=== PATIENT | female | born 1935 | race Caucasian/White ===

== ENCOUNTER 2016-07-28 15:11 | Observation (INO) | payer MEDICARE, OTHER ==
[~2016-07-28] VITALS: Ht 167.6 cm; Wt 75.3 kg
[~2016-07-28 15:11] MED LIST: ASPIRIN CHILDRE81 M1 PO; BACTROBAN2% TP; CEFTIN500 MG PO; CENTRUM SILVER1 TAB PO; CEPHALEXIN MON500 MG PO; CEPHALEXIN500 MG PO; CHEWABLE ASPIRI81 MG PO; CHLORTHALIDONE25 MG PO; CILOSTAZOL100 MG PO; CLINDAMYCIN HC150 MG PO; COUMADIN 2.5MG2.5 MG PO; COUMADIN 5MG TAB5 MG PO; COUMADIN2 MG PO; DICLOFENAC TD; DOCUSATE SODIU250 M1 PO; FENTANYL TR25 MCG/HR TD; FERROUS SULFAT325 M2; FERROUS SULFAT325 M2 PO; FERROUS SULFATE65 MG PO; FLEXERIL10 MG PO; GABAPENTIN100 M2 PO; HUMULIN 70100 UNITS/ SC; HYDROXYZINE 25M25 MG PO; INSULIN RE100 UNITS/ SC; IRON65 MG PO; ISOSORBIDE DINI10 MG PO; Isosorbide Mono30 MG PO; Isosorbide Mono60 MG PO; K-DUR 20MEQ TA20 MEQ PO; KAYEXALATE1 PDR PO; LASIX 40MG. TAB40 MG PO; LASIX 80MG. TAB80 MG PO; LASIX20 MG PO; LEVALBUTER1.25 MG/0. IN; LORTAB 500 MG-71 TAB PO; MAALOX 30ML30 ML/UDC PO; MACROBID100 M3 PO; METOCLOPRAMIDE10 MG PO; MILK OF MA400 MG/51 PO; MORPHINE SULFAT30 M1 PO; MORPHINE SULFAT30 M3 PO; NITROGLYCERIN0.4 M1 SL; NOVAPLUS VANCO125 MG PO; NOVOLOG MIX 70/33 ML SC; NYSTATIN TP; OMEPRAZOLE20 MG PO; OMEPRAZOLE40 MG PO; OXYBUTYNIN5 MG PO; POLYETHYLE17 GM/DOSE PO; PREDNISONE 20MG20 MG PO; PRILOSEC20 M1 PO; QUINAPRIL20 MG PO; RESTORIL 30MG C30 MG PO; TEARS NATURALE15 ML OP; TESSALON PERLE100 MG PO; TRAZADONE HYDR100 MG PO; URBAN 360 ML360 ML PO; VITAMIN C250 M1 PO; VITAMIN D31000 I1 PO; WARFARIN SOD5 MG PO; ZINC SULFATE220 MG PO; ZITHROMAX Z-PA250 M1 PO; [UNRECOGNIZED DRUG - OTHER] TP
[2016-07-28 15:13] VITALS: BP 134/53
--- NOTE | 2016-07-28 16:12 | RADIOLOGY REPORT PS360 ---
CHEST-PORTABLE HISTORY: ANEMIA ORDERING PHYSICIAN: Nena Cunha MD PATIENT AGE: 81 years COMPARISON: 06/30/2016 FINDINGS: The cardiomediastinal silhouette and pulmonary vascularity are within normal limits. The lungs are clear without infiltrates, suspicious nodules, or pleural effusions. No acute bony abnormalities. There is evidence of old granulomatous disease IMPRESSION: No change with no acute finding
[2016-07-28 16:13] LABS: LYMPH # 0.7 K/mm3 (0.7-4.5); LYMPH % 17.4 % (10-50.0)
[2016-07-28 16:16] LABS: HEMOGLOBIN 8.7 g/dL (12.2-16.2)
--- NOTE | 2016-07-28 16:20 | Emergency Room Report ---
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 N Clinical Suspician of Infection? N Mental Status: 1 - Regular (Normal Baseline) Sepsis Risk:Low Sepsis Risk Have you (or family members/close friends) recently traveled outside the [place]? N If Yes, where/when: Have you had exposure to infectious disease within the past month? TB? Other? Specify: Patient with diminished PO intake the last few days, mouth feels dry; has chronic anemia and trending down hemoglobin noted at [place]; s/p AKA amputation [place] within the past few weeks, no complaints from that standpoint. She denies n/v/d; she is on Coumadin. ALLERGIES Coded Allergies: oxycodone (Severe, S-DIFF. BREATHING 07/28/16) Penicillins (Intermediate, I-RASH 07/28/16) Quinolones (Intermediate, I-RASH 07/28/16) Sulfa (Sulfonamide Antibiotics) (Intermediate, I-RASH 07/28/16) ciprofloxacin (Intermediate, I-RASH 07/28/16) sulfacetamide (Intermediate, I-RASH 07/28/16) Home Medications Active Scripts Sodium Polystyrene Sulfonate (Kayexalate) 15 GM PO ONCE #1 PDR Prov: 06/30/16 NITROFURANTOIN MONOHYD/M-CRYST (Macrobid 100 MG Capsule) 100 MG PO DAILY #7 CAP Prov: 06/30/16 Gabapentin 100 MG PO BID #60 Prov: 10/02/10 Reported Medications Isosorbide Dinitrate 30 MG PO BID Omeprazole (Omeprazole 20MG) 20 MG PO BID Metoclopramide Hcl (Metoclopramide) 10 MG PO QID Polyethylene Glycol 3350 17 GM PO DAILY DEXTRAN 70/HYPROMELLOSE (Tears Naturale Droptainer) 1-2 DROP OP BID Warfarin Sodium (Coumadin) 4 MG PO DAILY CILOSTAZOL (Cilostazol) 100 MG PO BID MORPHINE SULFATE SR/ER (Morphine Sulfate ER) 30 MG PO BID INSUL REG 30%ISOPHAN 70% HUMAN (Humulin 70-30 Vial) 8 UNITS SC BID Furosemide (Lasix) 40 MG PO BID Trazodone Hcl (Trazodone HCl) 200 MG PO QHS Quinapril Hcl (Quinapril HCl) 20 MG PO BID Aspirin 81 MG PO DAILY Nystatin-Triamcin Oint (Nystatin-Triamcinolone Ointm) 1 OIN TP BID MISCELLANEOUS (UNKNOWN MEDICATION) 1 TAB PO PRN PRN CONSTIPATION MULTIVIT,THER IRON,CA,FA & MIN (Sm Therapeutic M Tablet) 1 TAB PO DAILY Nitroglycerin 0.4 MG SL PRN PRN CHEST PAIN Furosemide (Lasix 40MG) 40 MG PO BID OMEPRAZOLE MAGNESIUM (Prilosec 20MG) 20 MG PO BID MUPIROCIN 2% (Bactroban Oint) 0 GM TP DAILY #22 History Medical History General CAD? No Angina: Yes [place]: Yes Hypertension? Yes Hyperlipidemia? No CHF? Yes DVT? Yes PE? Yes COPD? No Asthma? No Anemia? No GERD? No Gastric ulcers? No GI Bleed? No Hernia? Yes Thyroid Problems? No Hypothyroidism? No CVA? Yes Seizures? 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 Yes Renal Insuffiency? Yes End Stage Renal Disease? No UTI? Yes Stones? No BPH? No GB Disease: Yes Nephritic Syndrome? No Asplenia? No Hepatitis? No Sickle Cell Disease? No Arthritis? No Migraines? No Cataracts? Yes Glaucoma? No MRSA? No HIV? No TB? No Anxiety? Yes Depression? 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 Family History Family Hx Diabetes Yes CAD Yes Hypertension No Hyperlipidemia No Cancer No TB Yes Social History Smoking Hx Smoker: Never Smoker Tobacco: No Type N/A Packs/day N/A Alcohol Alcohol: No Review of Systems All Other Systems Reviewed and Negative Comment heme: chronic anemia Physical Exam Vital Signs Vital Signs Date Time Temp Pulse Resp B/P Pulse O2 O2 Flow FiO2 Ox Delivery Rate 07/28 1635 68 20 134/53 98 07/28 1513 98.3 79 18 134/53 98 General Appearance normal appearance, WD/WN, no apparent distress Eye Exam - bilateral eye normal exam, bilateral eye PERRL, bilateral eye EOMI Ear, Nose, Throat hearing grossly normal (OP dry) Neck normal inspection, non-tender, supple, full range of motion Respiratory Status Yes: trachea midline, chest symmetrical, non tender chest. No: respiratory distress, tender on palpation, use of accessory muscles, pain on inspiration, pain on expiration, productive cough, non productive cough. Lung Sounds bilateral: normal breath sounds, lungs clear. Cardiovascular normal exam, regular rate/rhythm, no peripheral edema, has B AKA Peripheral Pulses Pulses normal Yes (B AKA femoral pulses good) Gastrointestinal normal bowel sounds, non tender, firm, soft, no organomegaly, no pulsatile mass (ecchymosis) Extremities non-tender (ugo intact R no drainage) Neurologic alert, normal exam, no motor/sensory deficits, oriented x 3, B AKA moves BUE well and legs at hip level move well. Medical Decision Making LABS/Meds/Orders Pt receiving controlled substance in ED? No Results/Orders Laboratory Tests 07/28/16 1631: Urine Color STRAW, Urine Appearance CLEAR, Urine pH 5.5, Ur Specific [place] 1.010, Urine Protein NEGATIVE, Urine Ketones NEGATIVE, Urine Blood NEGATIVE, Urine Nitrate POSITIVE H, Urine Bilirubin NEGATIVE, Urine Urobilinogen 0.2, Ur Leukocyte Esterase 2+ H, Urine WBC OCC, Urine Bacteria 2+, Urine Glucose NEGATIVE 07/28/16 1555: MCH 32.3 H 07/28/16 1555: Sodium 127 L, Potassium 4.9, Chloride 93 L, Carbon Dioxide 27, BUN 126 *H, Creatinine 4.0 H, Estimated Creat Clear 13 L, Estimated GFR (MDRD) 11 *L, Glucose 188 H, Calcium 8.3 L, Total Bilirubin 0.2, AST 23, ALT 23, Alkaline Phosphatase 93, Total Protein 6.5, Albumin 2.5 L, Globulin 4.0 H, Albumin/ Globulin Ratio 0.6 L, PT Pending, INR Pending, WBC 4.1 L, RBC 2.67 L, Hgb 8.7 L, Hct 25.8 L, MCV 96.0, RDW 14.2, Plt Count 264, MPV 6.2 L, Gran % 77.3, Gran # 3.1, Lymphocytes % 17.4, Monocytes % 4.0, Eosinophils % 1.2, Basophils % 0.1, Lymphocytes # 0.7, Monocytes # 0.2, Eosinophils # 0.1, Basophils # 0.0, PUBS MCHC 33.6, Antibody Screen NEGATIVE, Miscellaneous Test POSITIVE Current Medication Orders Sig/Loretta Start time Last Medication Dose Route Stop Time Status Admin Sodium Chloride 10 ML PRN PRN 07/28 1515 AC IV 07/29 1515 Orders Procedure Date/time Status Decision to admit 07/28 1700 Active CULTURE, URINE 07/28 1631 Active URINARY CATHETER INSERT 07/28 1614 Active URINALYSIS/COMPLETE 07/28 1614 Complete TYPE FOR CROSSMATCH 07/28 1550 Complete 12 LEAD EKG-SILAS (INITIAL) 07/28 1516 Active ELECTROCARDIOGRAM REQUEST 07/28 1516 Active IV SALINE LOCK 07/28 1516 Active CBC WITH AUTO DIFF 07/28 1516 Complete CHEM 12 PROFILE 07/28 1516 Complete Consult MD Physician Consult Time Called 1654 Reason Pt. Condition Departure Departure Time of Disposition 1741 Disposition Still a Patient Clinical Impression Primary Impression: Anemia Qualifiers: Anemia type: unspecified type Qualified Code: D64.9 - Anemia, unspecified Condition STABLE Referrals Yimi Valenzuela (Family) ED Critical Care Critical Care No at 1742
[2016-07-28 16:43] LABS: URINE BILIRUBIN - DIPSTICK NEGATIVE (NEG); URINE BLOOD NEGATIVE (NEG)
[2016-07-28 17:00] LABS: ABO BLOOD TYPE O; RH BLOOD TYPE POSITIVE
[2016-07-28 18:41] VITALS: BP 90/54
[2016-07-28 18:43] VITALS: BP 90/54
[2016-07-28] MEDS ORDERED: CALCITRIOL 00.25 MCG PO (18:52)
[2016-07-28] MEDS ORDERED: CALCIUM 600600 M2 PO (18:53)
[2016-07-28] MEDS ORDERED: GABAPENTIN 100100 MG PO (18:56)
[2016-07-28] MEDS ORDERED: METOPROLOL 25 M25 MG PO (18:57)
[2016-07-28] MEDS ORDERED: COUMADIN 5MG TAB5 MG PO (19:03)
[2016-07-28] MEDS ORDERED: GOOD SENSE PAI500 M1 PO (19:05)
[2016-07-28] MEDS ORDERED: REGLAN 5MG TABLE5 MG PO (19:06)
[2016-07-28] MEDS ORDERED: OXYCODONE SR 4040 MG PO (19:07)
[2016-07-28 20:10] VITALS: BP 130/48
[2016-07-29] VITALS (21 sets, daily range): BP systolic 116–163; BP diastolic 47–74
[2016-07-29 00:10] LABS: ANTIHUMAN GLOB CROSSMATCH COMPAT
[2016-07-29 06:59] LABS: LYMPH # 2.2 K/mm3 (0.7-4.5); LYMPH % 67.8 % (10-50.0)
[2016-07-29 07:00] LABS: HEMOGLOBIN 9.9 g/dL (12.2-16.2)
[2016-07-29 07:16] LABS: NEUTROPHILS 75 % (42-76)
--- NOTE | 2016-07-29 07:20 | Discharge Summary Standard ---
Demographics: Admit date: 07/28/16 Chief complaint: Abnormal labs PRIMARY DIAGNOSIS: CHRONIC ANEMIA Allergies: Coded Allergies: oxycodone (Severe, S-DIFF. BREATHING 07/28/16) Penicillins (Intermediate, I-RASH 07/28/16) Quinolones (Intermediate, I-RASH 07/28/16) Sulfa (Sulfonamide Antibiotics) (Intermediate, I-RASH 07/28/16) ciprofloxacin (Intermediate, I-RASH 07/28/16) sulfacetamide (Intermediate, I-RASH 07/28/16) History of present illness: History of present illness: 81-year-old female with history of vascular disease and severe chronic kidney disease and was sent to the emergency department from the assisted [facility] where she resides due to some abnormal labs. Patient had a hemoglobin in the mid eights which was a slight decrease from baseline. She is status post [id number] amputation at the [facility]. Patient had a hemoglobin of 8.6 on arrival. She was mildly hyponatremic and urinalysis was abnormal. Patient was admitted for blood transfusion. She received 2 units of packed red blood cells overnight Past medical history: Family HX Family Hx Insignificant No Diabetes Yes CAD Yes Hypertension No Hyperlipidemia No Cancer No TB Yes Immunization HX Ped.Immunizations UTD Yes DT/Tetanus Unknown Flu [id number] Flu Season Pneumonia Received In Past TB Test in last year No General CAD? No Angina: Yes [place]: Yes Hypertension? Yes Hyperlipidemia? No CHF? Yes DVT? Yes PE? Yes COPD? No Asthma? No Anemia? No GERD? No Gastric ulcers? No GI Bleed? No Hernia? Yes Thyroid Problems? No Hypothyroidism? No CVA? Yes Seizures? 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 Yes Renal Insuffiency? Yes UTI? Yes Stones? No BPH? No GB Disease: Yes Nephritic Syndrome? No Asplenia? No Hepatitis? No Sickle Cell Disease? No Arthritis? No Migraines? No Cataracts? Yes Glaucoma? No MRSA? No HIV? No TB? No Anxiety? Yes Depression? 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 Current home meds: Active Scripts NITROFURANTOIN MONOHYD/M-CRYST (Macrobid 100 MG Capsule) 100 MG PO DAILY #7 CAP Prov: 06/30/16 Reported Medications Isosorbide Dinitrate 30 MG PO BID Metoclopramide Hcl (Metoclopramide) 10 MG PO QID Furosemide (Lasix) 20 MG PO DAILY Polyethylene Glycol 3350 17 GM PO DAILY DEXTRAN 70/HYPROMELLOSE (Tears Naturale Droptainer) 1-2 DROP OP BID Omeprazole (Omeprazole 20MG) 20 MG PO BIDPRN Calcitriol (Calcitriol 0.25MCG Capsule) 0.25 MCG PO DAILY CALCIUM CARBONATE (Calcium Carbonate) 600 MG PO DAILY GABAPENTIN (Gabapentin 100MG Capsule) 100 MG PO BID Metoprolol Tartrate (Metoprolol 25MG) 12.5 MG PO BID WARFARIN SOD (Coumadin) 5 MG PO DAILY MISCELLANEOUS (UNKNOWN MEDICATION) 1 MISAEL TP BID Acetaminophen 500 MG PO Q6 PRN Metoclopramide Hcl (Reglan) 10 MG PO QIDPRN Oxycodone Hcl Sr (Oxycodone Sr 40MG) 10 MG PO Q4H Warfarin Sodium (Coumadin) 4 MG PO DAILY CILOSTAZOL (Cilostazol) 100 MG PO BID MORPHINE SULFATE SR/ER (Morphine Sulfate ER) 30 MG PO BID INSUL REG 30%ISOPHAN 70% HUMAN (Humulin 70-30 Vial) 8 UNITS SC BID Trazodone Hcl (Trazodone HCl) 200 MG PO QHS Quinapril Hcl (Quinapril HCl) 20 MG PO BID Aspirin 81 MG PO DAILY Nystatin-Triamcin Oint (Nystatin-Triamcinolone Ointm) 1 OIN TP BID MISCELLANEOUS (UNKNOWN MEDICATION) 1 TAB PO PRN PRN CONSTIPATION MULTIVIT,THER IRON,CA,FA & MIN (Sm Therapeutic M Tablet) 1 TAB PO DAILY Nitroglycerin 0.4 MG SL PRN PRN CHEST PAIN MUPIROCIN 2% (Bactroban Oint) 0 GM TP DAILY #22 Social Hx: Smoking HX Tobacco No Type N/A Packs/day N/A Are you/the child exposed to second-hand smoke: No Alcohol Alcohol: No Hx of Drug Use Drug Use? No Patien't marital status is Patient's support system is good Review of systems: Constitutional No: chills, fever. Respiratory no symptoms reported. Cardiovascular no symptoms reported Gastrointestinal/Abdominal no symptoms reported Genitourinary no symptoms reported. Musculoskeletal no symptoms reported. Neurological Yes: no symptoms reported. Exam: Lab data for last 24 hours: Laboratory Tests 07/29/16 0650: Sodium 131 L, Potassium 4.4, Chloride 98, Carbon Dioxide 25, BUN 117 *H, Creatinine 3.2 H, Estimated Creat Clear 17 L, Estimated GFR (MDRD) 14 *L, Glucose 98, Calcium 8.3 L, WBC 3.2 L, RBC 3.20 L, Hgb 9.9 L, Hct 29.7 L, MCV 92.9, RDW 15.5, Plt Count 244, MPV 6.1 L, Gran % 18.9 L, Gran # 0.6 *L, Lymphocytes % 67.8 H, Monocytes % 12.6 H, Eosinophils % 0.6, Basophils % 0.1, Lymphocytes # 2.2, Monocytes # 0.4, Eosinophils # 0.0, Basophils # 0.0, PUBS MCHC 33.8, MCH 31.4 H 07/29/16 0648: POC Glucose 104 07/29/16 0320: [facility] [place] Test Units BLOOD UNIT RELEASE 07/29/16 0022: [facility] Test Units BLOOD UNIT RELEASE 07/28/16 1631: Urine Color STRAW, Urine Appearance CLEAR, Urine pH 5.5, Ur Specific [place] 1.010, Urine Protein NEGATIVE, Urine Ketones NEGATIVE, Urine Blood NEGATIVE, Urine Nitrate POSITIVE H, Urine Bilirubin NEGATIVE, Urine Urobilinogen 0.2, Ur Leukocyte Esterase 2+ H, Urine WBC OCC, Urine Bacteria 2+, Urine Glucose NEGATIVE 07/28/16 1555: MCH 32.3 H 07/28/16 1555: Sodium 127 L, Potassium 4.9, Chloride 93 L, Carbon Dioxide 27, BUN 126 *H, Creatinine 4.0 H, Estimated Creat Clear 13 L, Estimated GFR (MDRD) 11 *L, Glucose 188 H, Calcium 8.3 L, Total Bilirubin 0.2, AST 23, ALT 23, Alkaline Phosphatase 93, Total Protein 6.5, Albumin 2.5 L, Globulin 4.0 H, Albumin/ Globulin Ratio 0.6 L, PT 29.6 H, INR 2.77 H, WBC 4.1 L, RBC 2.67 L, Hgb 8.7 L, Hct 25.8 L, MCV 96.0, RDW 14.2, Plt Count 264, MPV 6.2 L, Gran % 77.3, Gran # 3.1, Lymphocytes % 17.4, Monocytes % 4.0, Eosinophils % 1.2, Basophils % 0.1, Lymphocytes # 0.7, Monocytes # 0.2, Eosinophils # 0.1, Basophils # 0.0, PUBS MCHC 33.6, Antibody Screen NEGATIVE, Miscellaneous Test POSITIVE Microbiology 07/28 1631 URINE,FO: Urine Culture - RECD Admission vital signs: 1ST Vital Signs Result Date Time Pulse Ox 98 07/28 1513 B/P 134/53 07/28 1513 Temp 98.3 07/28 1513 Pulse 79 07/28 1513 Resp 18 07/28 1513 O2 Delivery ROOM AIR 07/28 1841 Additional information: Patient awakens easily this morning. With prompting she does remember me. She is oriented to person and place this morning. Head is without lesions. Oropharynx is moist. Neck is without carotid bruits. Heart has a regular rate and rhythm. Lungs are clear to auscultation. Abdomen is soft and nontender. Skin exam reveals multiple decubiti on the buttocks (see nursing assessment). Patient has bilateral [id number]-[id number] amputations. Recent amputation site on the RIGHT leg is healing well and ugo are intact. Patient has a Jeffries catheter in place that is draining clear urine Hospital Course Hospital Course: Patient was admitted and transfused 2 units of packed red cells which brought her hemoglobin up to 9.9. Creatinine decreased from 4 down to 3.2 which is a little bit closer to her baseline. BUN remained elevated. Once her H and H had risen she was discharged back to [facility] for further assisted. Medications Medications: Discharge meds are as noted. Follow up Follow up in office in: 1 DAY with: Yimi Hill at 0719
--- NOTE | 2016-07-29 07:20 | Discharge Summary Standard ---
Demographics: Admit date: 07/28/16 Chief complaint: Abnormal labs PRIMARY DIAGNOSIS: CHRONIC ANEMIA Allergies: Coded Allergies: oxycodone (Severe, S-DIFF. BREATHING 07/28/16) Penicillins (Intermediate, I-RASH 07/28/16) Quinolones (Intermediate, I-RASH 07/28/16) Sulfa (Sulfonamide Antibiotics) (Intermediate, I-RASH 07/28/16) ciprofloxacin (Intermediate, I-RASH 07/28/16) sulfacetamide (Intermediate, I-RASH 07/28/16) History of present illness: History of present illness: 81-year-old female with history of vascular disease and severe chronic kidney disease and was sent to the emergency department from the half-way [facility] where she resides due to some abnormal labs. Patient had a hemoglobin in the mid eights which was a slight decrease from baseline. She is status post [id number] amputation at the [facility]. Patient had a hemoglobin of 8.6 on arrival. She was mildly hyponatremic and urinalysis was abnormal. Patient was admitted for blood transfusion. She received 2 units of packed red blood cells overnight Past medical history: Family HX Family Hx Insignificant No Diabetes Yes CAD Yes Hypertension No Hyperlipidemia No Cancer No TB Yes Immunization HX Ped.Immunizations UTD Yes DT/Tetanus Unknown Flu [id number] Flu Season Pneumonia Received In Past TB Test in last year No General CAD? No Angina: Yes [place]: Yes Hypertension? Yes Hyperlipidemia? No CHF? Yes DVT? Yes PE? Yes COPD? No Asthma? No Anemia? No GERD? No Gastric ulcers? No GI Bleed? No Hernia? Yes Thyroid Problems? No Hypothyroidism? No CVA? Yes Seizures? 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 Yes Renal Insuffiency? Yes UTI? Yes Stones? No BPH? No GB Disease: Yes Nephritic Syndrome? No Asplenia? No Hepatitis? No Sickle Cell Disease? No Arthritis? No Migraines? No Cataracts? Yes Glaucoma? No MRSA? No HIV? No TB? No Anxiety? Yes Depression? 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 Current home meds: Active Scripts NITROFURANTOIN MONOHYD/M-CRYST (Macrobid 100 MG Capsule) 100 MG PO DAILY #7 CAP Prov: 06/30/16 Reported Medications Isosorbide Dinitrate 30 MG PO BID Metoclopramide Hcl (Metoclopramide) 10 MG PO QID Furosemide (Lasix) 20 MG PO DAILY Polyethylene Glycol 3350 17 GM PO DAILY DEXTRAN 70/HYPROMELLOSE (Tears Naturale Droptainer) 1-2 DROP OP BID Omeprazole (Omeprazole 20MG) 20 MG PO BIDPRN Calcitriol (Calcitriol 0.25MCG Capsule) 0.25 MCG PO DAILY CALCIUM CARBONATE (Calcium Carbonate) 600 MG PO DAILY GABAPENTIN (Gabapentin 100MG Capsule) 100 MG PO BID Metoprolol Tartrate (Metoprolol 25MG) 12.5 MG PO BID WARFARIN SOD (Coumadin) 5 MG PO DAILY MISCELLANEOUS (UNKNOWN MEDICATION) 1 MISAEL TP BID Acetaminophen 500 MG PO Q6 PRN Metoclopramide Hcl (Reglan) 10 MG PO QIDPRN Oxycodone Hcl Sr (Oxycodone Sr 40MG) 10 MG PO Q4H Warfarin Sodium (Coumadin) 4 MG PO DAILY CILOSTAZOL (Cilostazol) 100 MG PO BID MORPHINE SULFATE SR/ER (Morphine Sulfate ER) 30 MG PO BID INSUL REG 30%ISOPHAN 70% HUMAN (Humulin 70-30 Vial) 8 UNITS SC BID Trazodone Hcl (Trazodone HCl) 200 MG PO QHS Quinapril Hcl (Quinapril HCl) 20 MG PO BID Aspirin 81 MG PO DAILY Nystatin-Triamcin Oint (Nystatin-Triamcinolone Ointm) 1 OIN TP BID MISCELLANEOUS (UNKNOWN MEDICATION) 1 TAB PO PRN PRN CONSTIPATION MULTIVIT,THER IRON,CA,FA & MIN (Sm Therapeutic M Tablet) 1 TAB PO DAILY Nitroglycerin 0.4 MG SL PRN PRN CHEST PAIN MUPIROCIN 2% (Bactroban Oint) 0 GM TP DAILY #22 Social Hx: Smoking HX Tobacco No Type N/A Packs/day N/A Are you/the child exposed to second-hand smoke: No Alcohol Alcohol: No Hx of Drug Use Drug Use? No Patien't marital status is Patient's support system is good Review of systems: Constitutional No: chills, fever. Respiratory no symptoms reported. Cardiovascular no symptoms reported Gastrointestinal/Abdominal no symptoms reported Genitourinary no symptoms reported. Musculoskeletal no symptoms reported. Neurological Yes: no symptoms reported. Exam: Lab data for last 24 hours: Laboratory Tests 07/29/16 0650: Sodium 131 L, Potassium 4.4, Chloride 98, Carbon Dioxide 25, BUN 117 *H, Creatinine 3.2 H, Estimated Creat Clear 17 L, Estimated GFR (MDRD) 14 *L, Glucose 98, Calcium 8.3 L, WBC 3.2 L, RBC 3.20 L, Hgb 9.9 L, Hct 29.7 L, MCV 92.9, RDW 15.5, Plt Count 244, MPV 6.1 L, Gran % 18.9 L, Gran # 0.6 *L, Lymphocytes % 67.8 H, Monocytes % 12.6 H, Eosinophils % 0.6, Basophils % 0.1, Lymphocytes # 2.2, Monocytes # 0.4, Eosinophils # 0.0, Basophils # 0.0, PUBS MCHC 33.8, MCH 31.4 H 07/29/16 0648: POC Glucose 104 07/29/16 0320: [facility] Test Units BLOOD UNIT RELEASE 07/29/16 0022: [facility] Test Units BLOOD UNIT RELEASE 07/28/16 1631: Urine Color STRAW, Urine Appearance CLEAR, Urine pH 5.5, Ur Specific [place] 1.010, Urine Protein NEGATIVE, Urine Ketones NEGATIVE, Urine Blood NEGATIVE, Urine Nitrate POSITIVE H, Urine Bilirubin NEGATIVE, Urine Urobilinogen 0.2, Ur Leukocyte Esterase 2+ H, Urine WBC OCC, Urine Bacteria 2+, Urine Glucose NEGATIVE 07/28/16 1555: MCH 32.3 H 07/28/16 1555: Sodium 127 L, Potassium 4.9, Chloride 93 L, Carbon Dioxide 27, BUN 126 *H, Creatinine 4.0 H, Estimated Creat Clear 13 L, Estimated GFR (MDRD) 11 *L, Glucose 188 H, Calcium 8.3 L, Total Bilirubin 0.2, AST 23, ALT 23, Alkaline Phosphatase 93, Total Protein 6.5, Albumin 2.5 L, Globulin 4.0 H, Albumin/ Globulin Ratio 0.6 L, PT 29.6 H, INR 2.77 H, WBC 4.1 L, RBC 2.67 L, Hgb 8.7 L, Hct 25.8 L, MCV 96.0, RDW 14.2, Plt Count 264, MPV 6.2 L, Gran % 77.3, Gran # 3.1, Lymphocytes % 17.4, Monocytes % 4.0, Eosinophils % 1.2, Basophils % 0.1, Lymphocytes # 0.7, Monocytes # 0.2, Eosinophils # 0.1, Basophils # 0.0, PUBS MCHC 33.6, Antibody Screen NEGATIVE, Miscellaneous Test POSITIVE Microbiology 07/28 1631 URINE,FO: Urine Culture - RECD Admission vital signs: 1ST Vital Signs Result Date Time Pulse Ox 98 07/28 1513 B/P 134/53 07/28 1513 Temp 98.3 07/28 1513 Pulse 79 07/28 1513 Resp 18 07/28 1513 O2 Delivery ROOM AIR 07/28 1841 Additional information: Patient awakens easily this morning. With prompting she does remember me. She is oriented to person and place this morning. Head is without lesions. Oropharynx is moist. Neck is without carotid bruits. Heart has a regular rate and rhythm. Lungs are clear to auscultation. Abdomen is soft and nontender. Skin exam reveals multiple decubiti on the buttocks (see nursing assessment). Patient has bilateral [id number]-[id number] amputations. Recent amputation site on the RIGHT leg is healing well and ugo are intact. Patient has a Jeffries catheter in place that is draining clear urine Hospital Course Hospital Course: Patient was admitted and transfused 2 units of packed red cells which brought her hemoglobin up to 9.9. Creatinine decreased from 4 down to 3.2 which is a little bit closer to her baseline. BUN remained elevated. Once her H and H had risen she was discharged back to [facility] for further half-way. Medications Medications: Discharge meds are as noted. Follow up Follow up in office in: 1 DAY with: Yimi Hill at 0719
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
--- OUTSIDE RECORDS SUMMARY | 2016-08-07 21:38 | External Medical Summary Rpt ---
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 K21.9 Gastro-esop 07-24-2016 hageal reflux disease without esophagitis L89.893 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 ulcer of other site, stage 3 M79.604 Pain in 07-24-2016 right leg N18.6 End stage 07-24-2016 renal disease R22.32 Localized 07-24-2016 swelling, mass and lump, left upper limb R41.0 Disorientat 07-24-2016 ion, unspecified T87.89 Other 07-24-2016 complicatio ns of amputation stump 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 Z79.82 detention 07-24-2016 (current) use of aspirin Z79.899 Other long 07-24-2016 term (current) drug therapy 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 Z95.5 Presence of 07-24-2016 coronary angioplasty implant and graft Z99.3 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 Z89.619 Acquired 07-16-2016 absence of unspecified leg above knee [id number] History of [place] - lower [facility] 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 285.9 286.9 Blood [place] coagulation [facility] disorder [facility] 401.1 Benign [place] essential [facility] [phone] Anemia due [place] to blood [facility] loss [facility] [phone] Atheroscler [place] osis of [facility] the extremities 585.4 Chronic [place] kidney [facility] disease [facility] stage 4 593.9 611.72 D64.9 ANEMIA, [...] SI 73 -2 NO 90 5- Lo ND 35 20 ng [place] 01 13 er [...] 00 07 0 No TA 40 -2 LA 99 4- Lo N 15 20 ng K- 80 13 er 1 1 10 Ac ti MG ve /M L AM PU L FS 07 2 No -2 BL 4- Lo OO 20 ng D 13 er VALENC[place] GA Ac R ti ve NO 00 07 2 No VO 16 -2 LO 93 4- Lo G 69 20 ng LA 61 13 er X 9 70 Ac [...] RO 40 -2 SE 96 4- Lo LA 10 20 ng DE 20 13 er [...] complet BldC 013 mg/dl ed Glucomt 16:55 r-[facility] Glucose BldC Glucomtr-nc (11-03-2012 12:08) Glucose 25-2 128 70-110 complet BldC 013 mg/dl ed Glucomt 12:08 r-[facility] BASIC METABOLIC PANEL (11-03-2012 06:50) Glucose 11-03-2 [...] mg/dl ed Glucomt 06:48 r-mCnc Glucose BldC Glucomtr-[facility] (11-02-2012 21:20) Glucose 11-02-2 151 70-110 complet [...] DOS Code Location Performer Comment WHOLE 99.03 [facility] Christophe POLANCO TRANSFUS NEC Encounters Encounter Start End Date Code Location Performer Type Date Inpatient IMP [place] Saeed MD ([place]) 3 10:04 3 11:20 [facility]
--- OUTSIDE RECORDS SUMMARY | 2016-08-07 21:39 | External Medical Summary Rpt ---
Demographics Preferred Language Tamazight Marital Status Unknown Orthodox Affiliation Unknown Race Unknown Ethnic Group Unknown Author Author , Organization [employer] Address Unknown Phone Unavailable Purpose Continuity of Care Document - through 2016 Immunization No patient found.
--- OUTSIDE RECORDS SUMMARY | 2016-08-07 21:39 | External Medical Summary Rpt ---
Demographics Preferred Language Lao Marital Status Unknown Uatsdin Affiliation Unknown Race Unknown Ethnic Group Unknown Author Author , Organization [employer] Address Unknown Phone Unavailable Purpose Continuity of Care Document - through 2016 Immunization No patient found.
--- OUTSIDE RECORDS SUMMARY | 2016-08-07 21:39 | External Medical Summary Rpt ---
Author Author GANGA Terry, [employer] Organization [employer] Address Unknown Phone Unavailable
--- OUTSIDE RECORDS SUMMARY | 2016-08-07 21:40 | External Medical Summary Rpt ---
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 K21.9 Gastro-esop 07-24-2016 hageal reflux disease without esophagitis L89.893 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 ulcer of other site, stage 3 M79.604 Pain in 07-24-2016 right leg N18.6 End stage 07-24-2016 renal disease R22.32 Localized 07-24-2016 swelling, mass and lump, left upper limb R41.0 Disorientat 07-24-2016 ion, unspecified T87.89 Other 07-24-2016 complicatio ns of amputation stump Z79.01 longterm 07-24-2016 (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 nts 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.82 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 Z79.899 Other long 07-24-2016 term (current) drug therapy 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 Z95.5 Presence of 07-24-2016 coronary angioplasty implant and graft Z99.3 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 Z89.619 Acquired 07-16-2016 absence of unspecified leg above knee [id number] History of [place] - lower [facility] limb [facility] amputation 285.9 286.9 Blood [place] coagulation [facility] disorder [facility] 401.1 Benign [place] essential [facility] [phone] Anemia due [place] to blood [facility] loss [facility] [phone] Atheroscler [place] osis of [facility] the extremities 585.4 Chronic [place] kidney [facility] disease [facility] stage 4 593.9 611.72 D64.9 ANEMIA, [...] SI 73 -2 NO 90 5- Lo OR 35 20 ng [place] 01 13 er [...] 00 07 0 No TA 40 -2 IA 99 4- Lo N 15 20 ng K- 80 13 er 1 1 10 Ac ti MG ve /M L AM PU L FS 07 2 No -2 BL 4- Lo OO 20 ng D 13 er VALENCIA GA Ac R ti ve NO 00 07 2 No VO 16 -2 LO 93 4- Lo G 69 20 ng IA 61 13 er X 9 70 Ac [...] RO 40 -2 SE 96 4- Lo IA 10 20 ng DE 20 13 er [...] complet BldC 013 mg/dl ed Glucomt 16:55 r-[facility] Glucose BldC Glucomtr-nc (11-03-2012 12:08) Glucose 25-2 128 70-110 complet BldC 013 mg/dl ed Glucomt 12:08 r-[facility] BASIC METABOLIC PANEL (11-03-2012 06:50) Glucose 11-03-2 [...] mg/dl ed Glucomt 06:48 r-mCnc Glucose BldC Glucomtr-[facility] (11-02-2012 21:20) Glucose 11-02-2 151 70-110 complet [...] DOS Code Location Performer Comment WHOLE 99.03 [facility] Christophe POLANCO TRANSFUS NEC Encounters Encounter Start End Date Code Location Performer Type Date Inpatient IMP Her[place]th Saeed MD ([place]) 3 10:04 3 11:20 [facility]
--- OUTSIDE RECORDS SUMMARY | 2016-08-07 21:40 | External Medical Summary Rpt ---
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 K21.9 Gastro-esop 07-24-2016 hageal reflux disease without esophagitis L89.893 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 ulcer of other site, stage 3 M79.604 Pain in 07-24-2016 right leg N18.6 End stage 07-24-2016 renal disease R22.32 Localized 07-24-2016 swelling, mass and lump, left upper limb R41.0 Disorientat 07-24-2016 ion, unspecified T87.89 Other 07-24-2016 complicatio ns of amputation stump Z79.01 half-way 07-24-2016 (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 nts Z79.82 rn long term care 07-24-2016 (current) use of aspirin Z79.899 Other long 07-24-2016 term (current) drug therapy 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 Z95.5 Presence of 07-24-2016 coronary angioplasty implant and graft Z99.3 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 Z89.619 Acquired 07-16-2016 absence of unspecified leg above knee [id number] History of [place] - lower [facility] limb [facility] amputation 285.9 286.9 Blood [place] coagulation [facility] disorder [facility] 401.1 Benign [place] essential [phone] Anemia due [place] to blood [facility] loss [facility] 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 585.4 Chronic [place] kidney [facility] disease [facility] stage 4 593.9 611.72 D64.9 ANEMIA, [...] SI 73 -2 NO 90 5- Lo [place] 35 20 ng [place] 01 13 er [...] 00 07 0 No TA 40 -2 [place] 99 4- Lo N 15 20 ng K- 80 13 er 1 1 10 Ac ti MG ve /M L AM PU L FS 07 2 No -2 BL 4- Lo OO 20 ng D 13 er [place] Ac R ti ve NO 00 07 2 No VO 16 -2 LO 93 4- Lo G 69 20 ng KS 61 13 er X 9 70 Ac [...] RO 40 -2 SE 96 4- Lo KS 10 20 ng DE 20 13 er [...] complet BldC 013 mg/dl ed Glucomt 16:55 r-[facility] Glucose BldC Glucomtr-nc (11-03-2012 12:08) Glucose 25-2 128 70-110 complet BldC 013 mg/dl ed Glucomt 12:08 r-[facility] BASIC METABOLIC PANEL (11-03-2012 06:50) Glucose [...] mg/dl ed Glucomt 06:48 r-[facility] Glucose BldC Glucomtr-[facility] (11-02-2012 21:20) Glucose 11-02-2 151 70-110 [...] DOS Code Location Performer Comment WHOLE 99.03 [facility] Christophe POLANCO TRANSFUS NEC Encounters Encounter Start End Date Code Location Performer Type Date Inpatient IMP [place] Saeed MD ([place]) 3 10:04 3 11:20 [facility]
--- OUTSIDE RECORDS SUMMARY | 2016-08-07 21:41 | External Medical Summary Rpt ---
Demographics Preferred Language Thai Marital Status Unknown [employer] Affiliation Unknown Race Unknown Ethnic Group Unknown Author Author , Organization [employer] Address Unknown Phone Unavailable Purpose Continuity of Care Document - through 2016 Immunization No patient found.
--- OUTSIDE RECORDS SUMMARY | 2016-08-07 21:41 | External Medical Summary Rpt ---
Demographics Preferred Language Bengali Marital Status Unknown Sabianism Affiliation Unknown Race Unknown Ethnic Group Unknown Author Author , Organization [employer] Address Unknown Phone Unavailable Purpose Continuity of Care Document - through 2016 Immunization No patient found.
--- OUTSIDE RECORDS SUMMARY | 2016-08-07 23:28 | External Medical Summary Rpt ---
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, stage 3 M79.604 Pain in 07-24-2016 right leg N18.6 End stage 07-24-2016 renal disease R22.32 Localized 07-24-2016 swelling, mass and lump, left upper limb R41.0 Disorientat 07-24-2016 ion, unspecified T87.89 Other 07-24-2016 complicatio ns of amputation stump 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 (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 nts Z79.82 FDC 07-24-2016 (current) use of aspirin Z79.899 Other long 07-24-2016 term (current) drug therapy 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 [facility] loss [facility] [id number] Atheroscler [place] osis of [facility] the extremities 585.4 Chronic [place] kidney [facility] disease [facility] stage 4 593.9 611.72 D64.9 ANEMIA, UNSPECIFIED [...] SI 73 -2 NO 90 5- Lo MA 35 20 ng [place] 01 13 er [...] 00 07 0 No TA 40 -2 RI 99 4- Lo N 15 20 ng K- 80 13 er 1 1 10 Ac ti MG ve /M L AM PU L FS 07 2 No -2 BL 4- Lo OO 20 ng D 13 er [place] Ac R ti ve NO 00 07 2 No VO 16 -2 LO 93 4- Lo G 69 20 ng RI 61 13 er X 9 70 Ac [...] RO 40 -2 SE 96 4- Lo RI 10 20 ng DE 20 13 er [...] 013 4 ed T 05:10 VOLUME Granulo --2 73.5 % 37.0-80 complet cytes 013 .0 ed Fr Bld 05:10 Auto LYMPH % -26-2 18.7 % 10-50.0 complet 013 ed 05:10 Monocyt --2 6.0 % 1.7-9.3 complet es Fr 013 [...] r-nc Glucose BldC Glucomtr-mCnc (11-03-2012 16:55) Glucose 11-03-2 142 70-110 complet BldC 013 mg/dl ed Glucomt 16:55 r-nc Glucose BldC Glucomtr-mCnc (11-03-2012 12:08) Glucose 11-03-2 128 70-110 complet BldC 013 mg/dl ed Glucomt 12:08 r-[facility] BASIC METABOLIC PANEL (11-03-2012 06:50) Glucose 11-03-2 [...] 013 mmoL/L ed SerPl-s 06:50 Cnc CO2 2 18 21.0-32 complet SerPl-s 013 mmoL/L .0 [...] mg/dl ed Glucomt 06:48 r-mCnc Glucose BldC Glucomtr-nc (11-02-2012 21:20) Glucose 11-02-2 151 70-110 complet [...] complet WBC 013 wbc/hpf ed 10:10 URINE 11-02-2 5-10 0-5 complet SQUAMOU 013 #/hpf ed S CELLS 10:10 URINE 11-02-2 1+ O complet BACTERI 013 ed A 10:10 URINE 24-2 2+ NONE complet YEAST 013 ed 10:10 COMPREHENSIVE METABOLIC PANEL (11-02-2012 09:35) Glucose 11-02-2 238 74-106 complet 013 mg/dL ed Bld-mCn [...] 013 mmoL/L .0 ed Cnc 09:35 Calcium 11-02-2 7.0 8.5-10. complet 013 mg/dL 1 ed SerPl-m 09:35 Cnc Prot 24-2 4.5 6.4-8.2 complet SerPl-m 013 gm/dL ed Cnc 09:35 Albumin 24-2 2.4 3.4-5.0 complet 013 gm/dL ed SerPl-m 09:35 Cnc Globuli 11-02-2 2.1 1.3-3.2 complet n 013 gm/dL ed Ser-mCn 09:35 c Albumin 11-02-2 1.1 UNK 1.1-1.8 complet /Glob 013 ed SerPl-m 09:35 Rto Bilirub 11-02-2 0.2 0.2-1.0 complet 013 mg/dL ed SerPl-m 09:35 Cnc AST 11-02-2 11 U/L 15-37 complet SerPl-c 013 ed Cnc 09:35 ALT 2 32 U/L 30-65 complet SerPl-c 013 ed Cnc 09:35 ALP 2 7 U/L 50-136 complet SerPl-c 013 ed Cnc 09:35 D Dimer PPP (11-02-2012 09:35) D Dimer 11-02-2 Less 0-400 complet PPP 013 than ed 09:35 100 ng/mL CBC with AUTO DIFF (11-02-2012 09:35) WBC # 11-02-2 7.4 4.8-10. complet Bld 013 K/MM3 8 ed Auto 09:35 RBC # 11-02-2 1.97 4.2-5.4 complet Bld 013 M/mm3 ed Auto 09:35 Hgb 11-02-2 6.2 12.2-16 Low complet Bld-mCn 013 g/dL .2 alert ed c 09:35 Hct Fr 11-02-2 20.9 % 37.0-47 Low complet Bld 013 .0 alert ed 09:35 MCV RBC 11-02-2 105.6 82.2-97 complet 013 fl .8 ed 09:35 MCH RBC 11-02-2 31.3 pg 27-31.2 complet Qn 013 ed Auto 09:35 MEAN 11-02-2 29.6 31.8-35 complet CORPUSC 013 g/dl .4 ed ULAR 09:35 HGB CONC RDW RBC 11-02-2 13.5 % 11.5-17 complet Auto 013 .5 [...] DOS Code Location Performer Comment WHOLE 99.03 [facility] Christophe POLANCO TRANSFUS NEC Encounters Encounter Start End Date Code Location Performer Type Date Inpatient IMP [place] Sae[place] ([place]) 3 10:04 3 11:20 [facility]
--- OUTSIDE RECORDS SUMMARY | 2016-08-07 23:28 | External Medical Summary Rpt ---
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, stage 3 M79.604 Pain in 07-24-2016 right leg N18.6 End stage 07-24-2016 renal disease R22.32 Localized 07-24-2016 swelling, mass and lump, left upper limb R41.0 Disorientat 07-24-2016 ion, unspecified T87.89 Other 07-24-2016 complicatio ns of amputation stump 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 Z79.82 long-term 07-24-2016 (current) use of aspirin Z79.899 Other long 07-24-2016 term (current) drug therapy 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 BASIC METABOLIC PANEL (11-03-2012 06:50) Glucose 11-03-2 [...] DOS Code Location Performer Comment WHOLE 99.03 [facility] Christophe POLANCO TRANSFUS NEC Encounters Encounter Start End Date Code Location Performer Type Date Inpatient IMP [place] Saeed [place] ([place]) 3 10:04 3 11:20 [facility]
--- OUTSIDE RECORDS SUMMARY | 2016-08-07 23:29 | External Medical Summary Rpt ---
Demographics Preferred Language Welsh Marital Status Unknown [employer] Affiliation Unknown Race Unknown Ethnic Group Unknown Author Author , Organization [employer] Address Unknown Phone Unavailable Purpose Continuity of Care Document - through 2016 Immunization No patient found.
--- OUTSIDE RECORDS SUMMARY | 2016-08-07 23:29 | External Medical Summary Rpt ---
Demographics Preferred Language Icelandic Marital Status Unknown Roman Catholic Affiliation Unknown Race Unknown Ethnic Group Unknown Author Author , Organization [employer] Address Unknown Phone Unavailable Purpose Continuity of Care Document - through 2016 Immunization No patient found.
[2016-08-18] MEDS ORDERED: MACROBID100 M3 PO (15:05)
== END 2016-07-29 10:53 ==
LOC: ER 15:11 → 2ND 17:04 → ER 17:04 → 2ND 17:04
PROVIDERS: Emergency Medicine
DX: D64.9 Anemia, unspecified (principal); C85.90 Non-Hodgkin lymphoma, unspecified, unspecified site; Z86.711 Personal history of pulmonary embolism; Z79.01 Long term (current) use of anticoagulants; Z86.718 Personal history of other venous thrombosis and embolism; E11.9 Type 2 diabetes mellitus without complications; Z79.4 Long term (current) use of insulin; E87.1 Hypo-osmolality and hyponatremia; I12.0 Hypertensive chronic kidney disease with stage 5 chronic kidney disease or end stage renal disease; E11.22 Type 2 diabetes mellitus with diabetic chronic kidney disease; N18.6 End stage renal disease; Z99.2 Dependence on renal dialysis
CPT/HCPCS: G0378; P9016

== ENCOUNTER → 2017-01-04 | Outpatient (CLI) | payer MEDICARE, OTHER ==
[~2017-01-04] MED LIST changes: +CALCITRIOL 00.25 MCG PO; +CALCIUM 600600 M2 PO; +GABAPENTIN 100100 MG PO; +GOOD SENSE PAI500 M1 PO; +METOPROLOL 25 M25 MG PO; +OXYCODONE SR 4040 MG PO; +REGLAN 5MG TABLE5 MG PO
[2017-01-04 14:37] LABS: LYMPH # 1.2 K/mm3 (0.7-4.5); LYMPH % 24.8 % (10-50.0)
[2017-01-04 14:45] LABS: HEMOGLOBIN 10.2 g/dL (12.2-16.2)
[2017-01-04 15:30] LABS: BUN 37 mg/dL (7-18)
[2017-01-04 16:03] LABS: GFR (ESTIMATED) 23 ML/MIN (59-)
== END ==
LOC: LAB 12:54
PROVIDERS: Internal Medicine Nephrology
DX: N18.4 Chronic kidney disease, stage 4 (severe) (principal)